=== PATIENT | male | born 1995 | race African-American/Black ===

== ENCOUNTER 2019-01-29 08:06 | Emergency (ER) | payer SELFPAY ==
[~2019-01-29] VITALS: Ht 180.3 cm; Wt 78.9 kg
[2019-01-29 08:30] VITALS: BP 136/87
--- NOTE | 2019-01-29 09:06 | PHYS DOC ---
Past Medical History Past Medical History: No Pertinent History Past Surgical History: No Surgical History Alcohol Use: None Drug Use: Marijuana Adult General Chief Complaint Chief Complaint: HAND PROBLEM [facility] HPI Patient is a 23 year old right handed male who presents with complaining of right hand injury. Patient states he accidentally slammed the car door on his right hand this morning at 7 AM and complaining of pain and swelling of right hand without focal neuro deficit and other injuries. Patient rated his pain 7/10 and states he took 400 mg of ibuprofen. Review of Systems Review of Systems Constitutional: Denies fever or chills [] Eyes: Denies change in visual acuity, redness, or eye pain [] HENT: Denies nasal congestion or sore throat [] Respiratory: Denies cough or shortness of breath [] Cardiovascular: No additional information not addressed in HPI [] GI: Denies abdominal pain, nausea, vomiting, bloody stools or diarrhea [] : Denies hematuria Musculoskeletal: Denies back pain, reports joint pain [] Integument: Denies rash or skin lesions [] Neurologic: Denies headache, focal weakness or sensory changes [] Endocrine: Denies polyuria or polydipsia [] All other systems were reviewed and found to be within normal limits, except as documented in this note. Physical Exam Physical Exam Constitutional: Well developed, well nourished, mild distress, non-toxic appearance. [] HENT: Normocephalic, atraumatic. Eyes: PERRLA, EOMI, conjunctiva normal, no discharge. [] Neck: Normal range of motion, no tenderness, supple, no stridor. [] Cardiovascular:Heart rate regular rhythm, no murmur [] Lungs & Thorax: Bilateral breath sounds clear to auscultation [] Extremities: Right hand with moderate edema and tenderness in the second and third metacarpal area with painful range of motion without focal neuro deficit. Neurologic: Alert and oriented X 3, no focal deficits noted. [] Psychologic: Affect normal, judgement normal, mood normal. [] Current Patient Data Vital Signs Vital Signs Date Time Temp Pulse Resp B/P (MAP) Pulse Ox O2 Delivery O2 Flow Rate FiO2 01/29/19 08:30 98.5 73 16 136/87 (103) 99 Room Air 98.5 EKG EKG [] Radiology/Procedures Radiology/Procedures [][facility] [address] [place] [address] IMAGING REPORT Signed PATIENT: MARQUIS ZIA ACCOUNT: [id number] : 1995 LOCATION: ER AGE: 23 SEX: M EXAM STATUS: REG ER ORD. PHYSICIAN: NATHAN SALEH MD REASON: SLAMMED HAND IN DOOR YESTERDAY, PAIN AND SWELLING TO 2ND METACARPAL PROCEDURE: HAND RIGHT 3V Examination: HAND RIGHT 3V History: Slammed hand in door yesterday. Pain and swelling. Comparison/Correlation: None Findings: A total 3 images of the right hand were obtained. Comminuted second metacarpal head displaced fractures are present. Intra-articular extension is noted. Widening of the second metacarpophalangeal joint space which probably relates to underlying joint effusion is evident. Bony density about the third metacarpal base laterally is present on the oblique view and of indeterminate significance. No radiopaque foreign bodies. Impression: Comminuted second metacarpal head fracture with associated joint space widening likely related to joint effusion. Indeterminate bony density at the third metacarpal base. Correlate with symptoms. Electronically signed by: Charles Jones MD (01/29/2019 9:23 AM) [facility] DICTATED and SIGNED BY: CHARLES JONES MD DATE: 01/29/19 0923 Course & Med Decision Making Course & Med Decision Making Pertinent Imaging studies reviewed. (See chart for details) Evaluation of the patient in ER showed 23-year-old male patient with injury to right hand with fracture of second metacarpal and treated with posterior splint. Patient was advised to follow-up with data integration architect orthopedic physician. discharge: I've spoken with the patient and/or caregivers. I've explained the patient's condition, diagnosis and treatment plan based on information available to me at this time. I've answered the patient's and/or caregivers questions and addressed any concerns. The patient and/or caregivers have a good understanding the patient's diagnosis, condition and treatment plan as can be expected at this point. Vital signs have been stabilized. The patient's condition is stable for discharge from the emergency department. The patient will pursue further outpatient evaluation with her primary care provider or other designated consulting physician as outlined in the discharge instructions. Patient and/or caregivers are agreeable to this plan of care and follow-up instructions have been explained in detail. The patient and/or caregivers have received these instructions in written format and expressed understanding of these discharge instructions. The patient and her caregivers are aware that if any significant change in condition or worsening of symptoms should prompt him to immediately return to this of the closest emergency department. If an emergent department is not readily available I would encourage him to call 911. Dragon Disclaimer Dragon Disclaimer This electronic medical record was generated, in whole or in part, using a voice recognition dictation system. Departure Departure Impression: Primary Impression: Metacarpal bone fracture Disposition: HOME, SELF-CARE (at 10:30) Condition: IMPROVED Referrals: NO PCP (PCP) LORIN BARNES MD Patient Instructions: Hand Fracture, Metacarpals Additional Instructions: Apply ice on the affected area Follow-up with data integration architect orthopedic physician in one or 2 days Return to ER if not getting better Scripts Hydrocodone/Apap 5-325 (NORCO 5-325 TABLET) 1 Each Tablet 1 TAB PO PRN Q6HRS PRN for PAIN, #15 TAB 0 Refills Prov: NATHAN SALEH MD 01/29/19 Ibuprofen (IBUPROFEN) 800 Mg Tablet 800 MG PO PRN Q8HRS PRN for INFLAMMATION, #20 TAB Prov: NATHAN SALEH MD 01/29/19 Problem Qualifiers Primary Impression: Metacarpal bone fracture Encounter type: initial encounter Metacarpal bone: second Fracture type: closed Metacarpal location: unspecified portion of metacarpal Fracture a lignment: displaced Laterality: right Qualified Codes: S62.300A - Unspe cified fracture of second metacarpal bone, right hand, initial encounter for closed fracture NATHAN SALEH MD Jan 29, 2019 09:06
--- NOTE | 2019-01-29 09:25 | RAD ---
Examination: HAND RIGHT 3V History: Slammed hand in door yesterday. Pain and swelling. Comparison/Correlation: None Findings: A total 3 images of the right hand were obtained. Comminuted second metacarpal head displaced fractures are present. Intra-articular extension is noted. Widening of the second metacarpophalangeal joint space which probably relates to underlying joint effusion is evident. Bony density about the third metacarpal base laterally is present on the oblique view and of indeterminate significance. No radiopaque foreign bodies. Impression: Comminuted second metacarpal head fracture with associated joint space widening likely related to joint effusion. Indeterminate bony density at the third metacarpal base. Correlate with symptoms. Electronically signed by: Charles Arnold MD (01/29/2019 9:23 AM) [facility]
[2019-01-29] MEDS ORDERED: IBUP-1060 PO (10:45)
[2019-01-29] MEDS ORDERED: HYDR-3164 PO (10:45)
== END 2019-01-29 10:52 | disposition home or self-care (01) ==
LOC: ER 08:06
DX: S62.300A Unspecified fracture of second metacarpal bone, right hand, initial encounter for closed fracture (principal); W23.0XXA Caught, crushed, jammed, or pinched between moving objects, initial encounter; Y93.89 Activity, other specified; Y92.89 Other specified places as the place of occurrence of the external cause; Y99.8 Other external cause status
CPT/HCPCS: 29125; 73130; 99284-25